=== PATIENT | female | born 1995 | race Caucasian/White ===

== ENCOUNTER 2024-02-19 04:58 | Emergency (ER) | payer MEDICAID ==
[~2024-02-19] VITALS: Ht 154.9 cm; Wt 72.6 kg
[2024-02-19 05:02] VITALS: BP 150/74; PULSE 88; RESP 16; TEMP 98.3; O2SAT 99
[2024-02-19] MEDS ORDERED: FAMO-90 PO (06:13)
[2024-02-19] MEDS ORDERED: CYCL-711 PO (06:13)
[2024-02-19 06:22] VITALS: BP 150/87; PULSE 110; RESP 20; TEMP 97.3; O2SAT 100
== END 2024-02-19 06:22 | disposition home or self-care (01) ==
LOC: MED 04:58
DX: R07.89 Other chest pain (principal); I10 Essential (primary) hypertension; Z79.899 Other long term (current) drug therapy
CPT/HCPCS: 93005; 99283